=== PATIENT | male | born 1940 | race Caucasian/White ===

== ENCOUNTER 2017-08-29 15:27 | Emergency (ER) | payer OTHER ==
--- NOTE | 2017-08-29 15:44 | EDPHY ---
H & P Time Seen by Provider: 08/29/17 15:34 HPI/ROS: 77-year-old male presents complaining of cough, fatigue, sleeping more than usual, scattered body aches. He is unsure of fevers/chills. Review of systems As per HPI General no fever no chills positive fatigue HEENT no eye pain no eye discharge. No eye redness, no sore throat Respiratory positive cough, no shortness of breath Cardiac no chest pain, no peripheral edema GI no abdominal pain, no diarrhea, no constipation, no nausea, no vomiting no flank pain, no hematuria, no dysuria Musculoskeletal no myalgias, no joint pain Heme no easy bruising, no easy bleeding Endo no polyuria, no polydipsia Skin no rashes, no pruritus Neuro no syncope, no dizziness, no headaches Psych is no suicidal ideation, no homicidal ideation Past Medical/Surgical History: Bladder cancer-treated Social History: Alcohol socially, denies drug use Smoking Status: Never smoked Physical Exam: 77-year-old male with bronchospastic cough Alert and oriented nontoxic appearance, no acute distress afebrile Atraumatic normocephalic Extraocular muscles intact, anicteric Nares mild yellowish discharge Oropharynx mild erythema no tonsillar swelling no exudate no uvular deviation, tolerating own secretions Neck supple no lymphadenopathy Lungs clear to auscultation bilaterally Heart regular rate and rhythm Abdomen normoactive bowel sounds soft nontender Extremities no cyanosis clubbing or edema Skin no rash Constitutional: Initial Vital Signs Temperature (C) 36.9 C 08/29/17 15:45 Heart Rate 88 08/29/17 15:45 Respiratory Rate 18 08/29/17 15:45 Blood Pressure 142/71 H 08/29/17 15:45 O2 Sat (%) 93 08/29/17 15:45 O2 Delivery Mode Room Air Allergies/Adverse Reactions: No Known Allergies Allergy (Verified 08/29/17 15:44) Home Medications: Medication Instructions Recorded Oseltamivir Phosphate [Tamiflu 75 75 mg PO BID 5 Days #10 cap 08/29/17 mg (*)] Medical Decision Making - Diagnostics Imaging Results: Imaging Impressions Chest X-Ray 08/29/17 15:53 Impression: Mild underlying bronchitis. Possible pulmonary nodule right lung apex. If old films cannot be obtained for comparison, recommend CT for further evaluation. Results called and discussed with Jen De La Paz MD on 08/29/2017, 16:22. ED Course/Re-evaluation: Patient seen and evaluated for cough, fatigue, cold symptoms. Chest x-ray Negative for consolidation, consistent with bronchitis, right apex nodule- recommend follow-up Influenza A positive Patient was given a DuoNeb with equivocal of fact therefore not discharged home with albuterol at this time. Impression Influenza with bronchitis Plan Tamiflu Supportive [id number]-counter cough syrup, acetaminophen as needed Differential Diagnosis: Bronchitis, pneumonia, URI, influenza, congestive heart failure - Data Points Laboratory Results: 08/29/17 15:50 Influenza A,B Rapid POSITIVE FOR FLU A H (NEGATIVE) Medications Given: Discontinued Medications Albuterol/Ipratropium (Duoneb) 3 ml IH EDNOW ONE Stop: 08/29/17 15:54 Last Admin: 08/29/17 16:00 Dose: 3 ml Oseltamivir Phosphate (Tamiflu) 75 mg PO EDNOW ONE Stop: 08/29/17 16:20 Last Admin: 08/29/17 16:38 Dose: 75 mg Departure - Departure Disposition: Home, Routine, Self-Care Clinical Impression: Influenza A, Bronchitis Condition: Good Instructions: Influenza (ED) Additional Instructions: Follow up with your primary care for non-urgent Chest ct scan, you have a small nodule at the right apex of your lung. Referrals: Unknown,Unknown [Unknown] - As per Instructions Prescriptions: Oseltamivir Phosphate [Tamiflu 75 mg (*)] 75 mg PO BID 5 Days #10 cap
[2017-08-29 15:47] VITALS: RESP 18; TEMP 98.4
[2017-08-29] MEDS ORDERED: IPRATROPIUM/ALBUTEROL 3 ML DEYVIAL IH ONE (15:53)
[2017-08-29] MEDS ORDERED: OSELTAMIVIR PHOSPHATE 75 MG CAP PO ONE (16:19)
[2017-08-29 17:46] VITALS: BP 105/61; PULSE 90; O2SAT 91
== END 2017-08-29 16:44 | disposition home or self-care (01) ==
LOC: CED 15:27
DX: J10.1 Influenza due to other identified influenza virus with other respiratory manifestations (principal); J40 Bronchitis, not specified as acute or chronic; Z85.51 Personal history of malignant neoplasm of bladder
CPT/HCPCS: 71020-PO; 87400-PO